=== PATIENT | male | born 1960 | race American Indian/Alaskan Native ===

== ENCOUNTER 2022-05-17 10:19 | Emergency (ER) | payer OTHER ==
[2022-05-17 14:00] LABS: Bilirubin,Urine NEG (Negative); Blood,Urine NEG (Negative); Color,Urine Yellow (Yellow); Protein,Urine <15 mg/dL mg/dL (Negative); Urobilinogen,Urine < 2.0 mg/dL (<2.0)
[2022-05-17 14:03] LABS: Mucus,Urine FEW /HPF; RBC,Urine < 1.0 /HPF (0.0-6.0)
--- NOTE | 2022-05-17 14:37 | Ultrasound Report ---
Ultrasound testicular Doppler complete HISTORY: RO HERNIA; TESTICULAR SWELLING. TECHNIQUE: Grayscale and color Doppler imaging performed. COMPARISON: None FINDINGS: The right testicle measures 4.9 x 3.1 x 2.9 cm. The left testicle measures 4.1 x 2.7 x 2.3 cm. Both testicles are slightly heterogeneous but no discrete mass, cyst or calcifications. There is symmetric arterial flow on spectral Doppler imaging. A 5 mm right epididymal head cyst is identified. The epididymides are otherwise unremarkable. Small bilateral hydroceles containing debris are identified. No significant varicocele. There is mild nonspecific scrotal skin thickening/edema. Targeted ultrasound was performed in the right groin region which demonstrates multiple mildly promin ent lymph nodes. One of the largest lymph node measures 1.7 cm in short axis. IMPRESSION: 1. No evidence for mass, inflammatory changes or torsion. 2. 5 mm right epididymal head cysts. 3. Small but slightly complex bilateral hydroceles. 4. Nonspecific scrotal skin thickening/edema. 5. Borderline to mildly enlarged right inguinal lymph nodes. These may be reactive in nature. Conside r surveillance. 6. No evidence for hernia. Signer Name: Darin Fontana Jr, MD Signed: 05/17/2022 2:32 PM Workstation Name: [id number]
--- NOTE | 2022-05-17 14:46 | Emergency Department Report ---
ED Recheck HPI - General Chief Complaint: Urogenital-Male Stated Complaint: REF BY DR. ARIANA MANCERA Time Seen by Provider: 05/17/22 13:23 Source: patient Mode of arrival: Ambulatory Limitations: No Limitations - History of Present Illness Initial Comments: Patient is a 61-year-old male that was sent to the ER by his doctor to rule out testicular hernia. Patient has had some testicular swelling. No dysuria. No discharge. No fever or chills. No abdominal pain. MD Complaint: other -: Gradual, week(s) Context: other Associated Symptoms: none - Related Data Previous Rx's Medication Instructions Recorded Last Taken Type DOXYCYCLINE Hyclate [Vibramycin 100 mg PO Q12HR #20 capsule 05/17/22 Unknown Rx CAP] ED Review of Systems ROS: Stated complaint: REF BY DR. ARIANA MANCERA Other details as noted in HPI Comment: All other systems reviewed and negative ED Past Medical Hx - Past Medical History Previous Medical History?: Yes Hx Diabetes: Yes - Surgical History Past Surgical History?: No - Family History Family history: no significant - Social History Smoking Status: Never Smoker Substance Use Type: None - Medications Home Medications: Home Medications Medication Instructions Recorded Confirmed Last Taken Type DOXYCYCLINE Hyclate [Vibramycin 100 mg PO Q12HR #20 capsule 05/17/22 Unknown Rx CAP] ED Physical Exam - General Limitations: No Limitations General appearance: alert, in no apparent distress - Head Head exam: Present: atraumatic, normocephalic - Eye Eye exam: Present: normal appearance - ENT ENT exam: Present: mucous membranes moist - Neck Neck exam: Present: normal inspection - Respiratory Respiratory exam: Present: normal lung sounds bilaterally. Absent: respiratory distress - Cardiovascular Cardiovascular Exam: Present: regular rate, normal rhythm. Absent: systolic murmur, diastolic murmur, rubs, gallop - GI/Abdominal GI/Abdominal exam: Present: soft, normal bowel sounds - Rectal Rectal exam: Present: deferred - Extremities Exam Extremities exam: Present: normal inspection - Back Exam Back exam: Present: normal inspection - Neurological Exam Neurological exam: Present: alert, oriented X3 - Psychiatric Psychiatric exam: Present: normal affect, normal mood - Skin Skin exam: Present: warm, dry, intact, normal color. Absent: rash ED Course Vital Signs 05/17/22 05/17/22 10:47 15:39 Temperature 98.9 F 98.4 F Pulse Rate 79 77 Respiratory 14 16 Rate Blood Pressure 143/85 Blood Pressure 138/78 [Right] O2 Sat by Pulse 98 100 Oximetry ED Recheck MDM - Core Measures Measure Exclusions: not indicated - Medical Decision Making see US report see ua Vital Signs 05/17/22 10:47 Temperature 98.9 F Pulse Rate 79 Respiratory 14 Rate Blood Pressure 143/85 O2 Sat by Pulse 98 Oximetry Patient discharged home on Doxy. He is to follow-up with urology Patient being discharged home with discharge plan of care including diet, activity, medications and follow-up. He verbalizes understanding of plan of care Critical care attestation.: If time is entered above; I have spent that time in minutes in the direct care of this critically ill patient, excluding procedure time. ED Disposition Clinical Impression: Epididymitis Hydrocele Qualifiers: Hydrocele type: unspecified Qualified Code(s): N43.3 - Hydrocele, unspecified Disposition: 01 HOME / SELF CARE / HOMELESS Is pt being admited?: No Does the pt Need Aspirin: No Condition: Stable Instructions: Hernia, Adult, Epididymitis (ED) Additional Instructions: FOLLOW UP WITH UROLOGY FOR ONGOING MONITOR AND SURGICAL INTERVENTION REFERRAL BELOW OVER THE COUNTER MOTRIN OR TYLENOL FOR PAIN Prescriptions: DOXYCYCLINE Hyclate [Vibramycin CAP] 100 mg PO Q12HR #20 capsule Referrals: DOLLY MORALES MD [Staff Physician] - 3-5 Days Forms: STI Treatment and Prevention, Work/School Release Form(ED) Time of Disposition: 14:43
[2022-05-17 15:41] VITALS: BP 138/78
== END 2022-05-17 15:45 | disposition home or self-care (01) ==
LOC: ED 10:19
DX: N45.1 Epididymitis (principal); N43.3 Hydrocele, unspecified; E11.9 Type 2 diabetes mellitus without complications
CPT/HCPCS: 81001; 93975; 99284